=== PATIENT | male | born 1965 | race Caucasian/White ===

== ENCOUNTER 2018-03-22 08:50 | Outpatient (CLI) | payer OTHER ==
[~2018-03-22 08:50] MED LIST: AMOX1TAB12 PO; BACTROBAN OINT22 GM TP; CLINDAMYCIN HC300 MG; KETO10TA2 PO; ROCEPHIN; SEPTRA 80/400 T1 TAB
== END 2018-03-22 09:47 | disposition home or self-care (01) ==
LOC: LAB 08:50
DX: Z00.01 Encounter for general adult medical examination with abnormal findings (principal); I10 Essential (primary) hypertension; E03.8 Other specified hypothyroidism; E78.2 Mixed hyperlipidemia; Z12.5 Encounter for screening for malignant neoplasm of prostate; E08.9 Diabetes mellitus due to underlying condition without complications

== ENCOUNTER 2018-03-22 09:42 | Outpatient (CLI) | payer OTHER | END 2018-03-22 09:56 | disposition home or self-care (01) | LOC: SONOGRAMA 09:42 | DX: Z00.00 Encounter for general adult medical examination without abnormal findings (principal); I10 Essential (primary) hypertension; E03.8 Other specified hypothyroidism; E78.2 Mixed hyperlipidemia; Z12.5 Encounter for screening for malignant neoplasm of prostate; M54.5 Low back pain; R10.2 Pelvic and perineal pain; E08.9 Diabetes mellitus due to underlying condition without complications ==

== ENCOUNTER 2018-04-13 10:10 | Day surgery (SDC) | payer OTHER ==
[2018-04-17] MEDS ORDERED: LEVAQUIN500 MG (18:47)
== END 2018-04-13 19:20 | disposition home or self-care (01) ==
LOC: CIR.AMB 10:10
DX: K40.20 Bilateral inguinal hernia, without obstruction or gangrene, not specified as recurrent (principal)

== ENCOUNTER → 2018-04-17 | Emergency (ER) | payer OTHER ==
[~2018-04-17] VITALS: Ht 172.7 cm; Wt 95.3 kg
[~2018-04-17] MED LIST changes: +LEVAQUIN500 MG
== END | disposition home or self-care (01) ==
LOC: ER 18:30 → CPU-OBS 18:57
DX: I97.89 Other postprocedural complications and disorders of the circulatory system, not elsewhere classified (principal); R00.2 Palpitations
CPT/HCPCS: G0378; G0379; 93005

== ENCOUNTER 2018-12-19 15:13 | Outpatient (CLI) | payer OTHER | END 2018-12-19 15:25 | disposition home or self-care (01) | LOC: RAD 15:13 | DX: G89.11 Acute pain due to trauma (principal) ==

== ENCOUNTER 2023-02-08 08:01 | Outpatient (CLI) | payer OTHER | END 2023-02-08 08:17 | disposition home or self-care (01) | LOC: TOM 08:01 | PROVIDERS: ATTEND Specialist | DX: R10.9 Unspecified abdominal pain (principal) ==